=== PATIENT | female | born 2000 | race African-American/Black ===

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

== ENCOUNTER 2023-10-08 18:15 | Emergency (ER) | payer MEDICAID ==
[2023-10-08] MEDS ORDERED: Acetaminophen 500 MG TAB ONE (18:23)
[2023-10-08 19:11] LABS: Influenza A by NAA Not Detected (NotDetected); Influenza B by NAA Not Detected (NotDetected); SARS-CoV-2 NAA Rapid Test DETECTED (NotDetected)
[2023-10-08] MEDS ORDERED: Ketorolac Tromethamine 30 MG (1 mL) VIAL ONE (21:39)
== END 2023-10-08 19:41 | disposition home or self-care (01) ==
LOC: NAV ERS 18:15
DX: U07.1 COVID-19 (principal); J06.9 Acute upper respiratory infection, unspecified
CPT/HCPCS: 96372; 99284; J1885

== ENCOUNTER 2023-10-14 20:31 | Emergency (ER) | payer MEDICAID, OTHER ==
[2023-10-16 15:13] LABS: SARS-CoV-2 N1 Positive; SARS-CoV-2 N2 Positive; SARS-CoV-2 RNAse P1 Positive
== END 2023-10-14 21:13 | disposition home or self-care (01) ==
LOC: NAV ERS 20:31
DX: Z11.52 Encounter for screening for COVID-19 (principal); Z55.6 Problems related to health literacy
CPT/HCPCS: 87635; 99283

== ENCOUNTER 2024-03-14 22:31 | Emergency (ER) | payer MEDICAID, OTHER ==
[2024-03-14] MEDS ORDERED: Acetaminophen 500 MG TAB ONE (23:19)
[2024-03-14] MEDS ORDERED: Ibuprofen 200 MG TAB ONE (23:19)
[2024-03-14] MEDS ORDERED: Dexamethasone 10 MG/ML VIAL ONE (23:19)
[2024-03-14 23:33] LABS: Bilirubin Negative (Negative); Blood, Urine Trace (Negative); Clarity Clear (Clear); Glucose, Urine (Dipstick) Negative (Negative); Ketone, Urine Negative (Negative); Leukocyte Negative (Negative); Nitrite Negative (Negative); Protein, Urine (Dipstick) Negative (Neg-Trace); Urobilinogen 0.2 mg/dL (Less than 2); pH, Urine 6.5 (5.0-9.0)
[2024-03-14 23:34] LABS: Pregu Control Background? CLEAR/WHITE (CLR/WHITE); Pregu Control Bar Appear? YES (CONTROL BAR); Specific Gravity 1.018 (1.002-1.036)
[2024-03-14 23:35] LABS: Pregnancy Test - Urine (BHCG) Negative (Negative)
[2024-03-14 23:37] LABS: Bacteria/HPF Rare-Few HPF (None Seen); CAUTI Indications for Culture Fever or rigors; RBC/HPF 0-3 HPF (0-3); WBC/HPF None Seen HPF (0-3)
[2024-03-14 23:38] LABS: Urine Culture Reflex No No
== END 2024-03-15 00:30 | disposition home or self-care (01) ==
LOC: NAV ERS 22:31
DX: J02.9 Acute pharyngitis, unspecified (principal)
CPT/HCPCS: 81001; 81025; 87081; 87428; 87430; 96372; 99283; J1100